=== PATIENT | male | born 1975 | race Caucasian/White ===

== ENCOUNTER 2016-08-12 22:28 | Emergency (ER) | payer SELFPAY ==
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
[2016-08-13 00:37] VITALS: BP 130/88
--- NOTE | 2016-08-13 07:40 | RAD ---
INDICATION: Anterior left shoulder pain COMPARISON: None. TECHNIQUE: 4 views of the left shoulder were obtained. FINDINGS: The adequately corticated bones are in normal alignment. Joint spaces appear maintained. No fracture, dislocation or focal bony abnormality is seen. IMPRESSION: Normal radiograph of the left shoulder. If the patient's symptoms persist, follow-up imaging is recommended.
== END 2016-08-13 00:37 | disposition home or self-care (01) ==
LOC: ED 22:28
DX: S49.92XA Unspecified injury of left shoulder and upper arm, initial encounter (principal); Y09 Assault by unspecified means; Y93.89 Activity, other specified; Y92.89 Other specified places as the place of occurrence of the external cause; Y99.0 Civilian activity done for income or pay
CPT/HCPCS: 99282